=== PATIENT | female | born 1960 | race Caucasian/White ===

== ENCOUNTER → 2022-07-19 | Outpatient (CLI) | payer BC ==
[~2022-07-19] MED LIST: META800 PO; PROACE100 PO
[2022-07-24 15:10] LABS: HPV 16 Negative (Negative); HPV 18 Negative (Negative); HPV OTHER HR TYPES Negative (Negative)
== END | disposition home or self-care (01) ==
LOC: LAB 16:27 → LAB SHORT 16:27
PROVIDERS: Nurse Practitioner Women's Health
DX: Z01.419 Encounter for gynecological examination (general) (routine) without abnormal findings (principal); Z12.72 Encounter for screening for malignant neoplasm of vagina; Z11.51 Encounter for screening for human papillomavirus (HPV); Z11.3 Encounter for screening for infections with a predominantly sexual mode of transmission
CPT/HCPCS: 87624; G0145

== ENCOUNTER 2023-05-08 08:29 | Day surgery (SDC) | payer BC ==
[~2023-05-08] VITALS: Ht 172.7 cm; Wt 111.1 kg
[~2023-05-08 08:29] MED LIST changes: +ESTR2 PO; +LEVOTHYROXINE50 MC9 PO; +LIOT5 PO; +Lactated Ringer's 1,000 ML IV ONE; +METF500 PO; +ZOCOR20 MG PO; +propofoL 50 ML IV ONE
[2023-05-08] MEDS ORDERED: Lactated Ringer's 1,000 ML IV ONE (10:16)
[2023-05-08 11:56] VITALS: BP 100/50
== END 2023-05-08 11:58 | disposition home or self-care (01) ==
LOC: ORSCSDS 08:29
PROVIDERS: Internal Medicine Gastroenterology
PROC: 0DBH8ZX Excision of Cecum, Via Natural or Artificial Opening Endoscopic, Diagnostic (ICD-10-PCS; principal; 2023-05-08 10:15)
PROC: 0DBL8ZX Excision of Transverse Colon, Via Natural or Artificial Opening Endoscopic, Diagnostic (ICD-10-PCS; principal; 2023-05-08 10:15)
DX: Z12.11 Encounter for screening for malignant neoplasm of colon (principal); Z86.010 Personal history of colon polyps; D12.0 Benign neoplasm of cecum; K63.5 Polyp of colon; K64.8 Other hemorrhoids; E03.9 Hypothyroidism, unspecified; E11.9 Type 2 diabetes mellitus without complications; E78.5 Hyperlipidemia, unspecified; Z79.899 Other long term (current) drug therapy
CPT/HCPCS: 82947; 88305; J2704; J7120